=== PATIENT | male | born 1955 | race Caucasian/White ===

== ENCOUNTER 2020-09-27 08:31 | Outpatient (CLI) | payer OTHER ==
[2020-09-27 12:26] LABS: CHOLESTEROL 106 mg/dL; HDL CHOLESTEROL 35 mg/dL; LDL CHOLESTEROL,CALCULATED -6 mg/dL; LDL/HDL RATIO -0.2 (<3.6); TRIGLYCERIDES 386 mg/dL; VLDL CHOLESTEROL 77 mg/dL
[2020-09-27 12:55] LABS: ESTIMATED AVERAGE GLUCOSE 223 mg/dL (70-100); HEMOGLOBIN A1c% 9.4 % (4.27-6.07)
== END 2020-09-27 08:32 | disposition home or self-care (01) ==
LOC: LAB.N 08:31
PROVIDERS: ATTEND Internal Medicine
DX: E78.5 Hyperlipidemia, unspecified (principal); E11.9 Type 2 diabetes mellitus without complications
CPT/HCPCS: 36415; 80061; 83036; 83721